=== PATIENT | male | born 1965 | race Hispanic/Latino ===

== ENCOUNTER 2019-05-11 18:26 | Emergency (ER) | payer OTHER ==
[~2019-05-11 18:26] MED LIST: ESOM20CA31 PO; FAMO40TA7 PO
[2019-05-11] MEDS ORDERED: IBUPROFEN 600 MG TABLET ONE (18:55)
== END 2019-05-11 19:15 | disposition home or self-care (01) ==
LOC: EDH 18:26
DX: S93.501A Unspecified sprain of right great toe, initial encounter (principal); Z90.49 Acquired absence of other specified parts of digestive tract; W23.0XXA Caught, crushed, jammed, or pinched between moving objects, initial encounter; Y93.89 Activity, other specified; Y92.89 Other specified places as the place of occurrence of the external cause; Y99.8 Other external cause status
CPT/HCPCS: 73660

== ENCOUNTER → 2019-06-24 | Outpatient (CLI) | payer BC ==
[~2019-06-24] MED LIST changes: +IOHEXOL-350 75 ML VIAL IV ONE
== END | disposition home or self-care (01) ==
LOC: RAH 07:43
PROVIDERS: ATTEND Internal Medicine
DX: R10.32 Left lower quadrant pain (principal); M47.815 Spondylosis without myelopathy or radiculopathy, thoracolumbar region; K76.89 Other specified diseases of liver
CPT/HCPCS: 74177; Q9967